=== PATIENT | female | born 1960 | race Caucasian/White ===

== ENCOUNTER 2016-12-21 11:09 | Inpatient (IN) ==
--- NOTE | 2016-12-20 20:36 | Discharge Summary ---
<Laura Burns - Last Filed: 12/20/16 20:34> Date of Encounter: 12/20/16 - Discharge Diagnosis (1) Loosening of knee joint prosthesis Priority: Primary Status: Acute Qualifiers: Encounter type: initial encounter Qualified Code(s): T84.038A - Mechanical loosening of other internal prosthetic joint, initial encounter; Z96.659 - Presence of unspecified artificial knee joint (2) HTN (hypertension) Priority: Secondary Status: Chronic - Discharge Medications Home Medications: Aspirin Enteric Coated [Aspirin EC] 325 mg PO DAILY #21 tablet.dr 12/20/16 [Rx] OxyCODONE Immed Rel [Roxicodone 5 MG] 5 - 10 mg PO Q6HR PRN #40 tablet 12/20/16 [Rx] Esomeprazole Magnesium [Nexium] 40 mg PO DAILY 12/21/16 [History] Fexofenadine HCl [Allergy Relief] 180 mg PO DAILY 12/21/16 [History] Lisinopril/Hydrochlorothiazide [Zestoretic 10-12.5 mg Tablet] 1 each PO DAILY [History] Meloxicam [Mobic] 15 mg PO DAILY 12/21/16 [History] Allergies/Adverse Reactions: Allergies ampicillin Adverse Reaction (Verified 12/21/16 12:25) Esvin Primary care physician: Giuseppe Canchola - Patient Status Disposition: Home, Self-Care Condition: Good - Discharge Instructions Follow Up With: Giuseppe Canchola DO [Primary Care Provider] - - Hospital Course Hospital course: Ms. Harvey is a 56 year old female - Time Spent with Patient Total time spent providing and/or coordinating discharge services: <Chace Sauer - Last Filed: 12/22/16 06:40> Date of Encounter: 12/22/16 Time of Encounter: 06:39 - Discharge Diagnosis (1) Morbid obesity with BMI of 40.0-44.9, adult Priority: Secondary Status: Chronic (2) Loosening of knee joint prosthesis Priority: Primary Status: Acute Qualifiers: Encounter type: subsequent encounter Qualified Code(s): T84.038D - Mechanical loosening of other internal prosthetic joint, subsequent encounter; Z96.659 - Presence of unspecified artificial knee joint (3) HTN (hypertension) Priority: Secondary Status: Chronic Qualifiers: Hypertension type: unspecified secondary hypertension Qualified Code(s): I15.9 - Secondary hypertension, unspecified; I15 - Secondary hypertension Primary care physician: Giuseppe Canchola - Patient Status Functional capacity at discharge: uses cane/walker Overall status at discharge: patient is progressing back to baseline - Hospital Course Hospital course: Ms. Harvey is a 56 year old female The patient had an uneventful postoperative course. They received antibiotics and physical therapy and were discharged in stable condition. There will follow -up in the office in 2 weeks. Aspirin DVT prophylaxis - Time Spent with Patient Total time spent providing and/or coordinating discharge services:
--- NOTE | 2016-12-21 11:28 | History & Physical Report ---
Date of Encounter: 12/21/16 Time of Encounter: 11:28 24 Hour HP Update - Instructions Instructions: If the History and Physical is less than 30 days old and was completed prior to A.M. admission and or procedure and has NOT been updated on calendar day of procedure please complete this update prior to performing procedure. - Update Patient reports changes in Medical Condition: No Changes in examination, assessment, or condition: No Changes in Medication: No Preop tests/diagnostics Reviewed: Yes Surgery Remains Indicated: Yes Consent for Planned Operative Procedure(s) Verified: Yes - Pre-Operative Checklist Preoperative Checklist Indicated: No Prophylactic Antibiotic Ordered: Yes Is VTE Prophylaxis Indicated?: Yes
[2016-12-21] MEDS ORDERED: *HR* FentaNYL (PF) 100 MCG/2 ML VIAL ONE (11:35)
[2016-12-21] MEDS ORDERED: *HR* Propofol 200 MG/20 ML VIAL IVP ONE (11:35)
[2016-12-21] MEDS ORDERED: *HR* Midazolam HCl 2 MG/2 ML VIAL ONE (11:35)
[2016-12-21] MEDS ORDERED: Dexamethasone 4 MG/ML VIAL ONE (11:36)
[2016-12-21] MEDS ORDERED: Lidocaine -MPF 2% 2 ML VIAL ONE (11:36)
[2016-12-21] MEDS ORDERED: Ondansetron 4 MG/2 ML VIAL ONE (11:36)
[2016-12-21] MEDS ORDERED: Gabapentin 300 MG CAPSULE PO ONE (11:51)
[2016-12-21] MEDS ORDERED: Famotidine 20 MG/2 ML VIAL IVP ONE (11:51)
[2016-12-21] MEDS ORDERED: Vancomycin 1,500 MG in D5% in Water 250 ML IVPB ONE (11:55)
--- NOTE | 2016-12-21 11:58 | Anesthesia Evaluation PreOp ---
Date of Encounter: 12/21/16 Time of Encounter: 12:00 - Past History Planned Operation: Left TKA Revision Cardiac History: HTN Pulmonary History: Denies Any Significant HX CHAINSTITCH HEMMER History: Denies Any Significant HX Other Medical History: GERD, Other (Morbid Obesity) Anesthesia History: No Prior Anesthetic Complications : No Alcohol Use: none Drug use: none Medications and Allergies Aspirin Enteric Coated [Aspirin EC] 325 mg PO DAILY #21 tablet. 12/20/16 [Rx] OxyCODONE Immed Rel [Roxicodone 5 MG] 5 - 10 mg PO Q6HR PRN #40 tablet 12/20/16 [Rx] Allergies ampicillin Adverse Reaction (Verified 12/21/16 11:55) Hives - Meds/Allergy Pre-op Review Medications Reviewed: Yes Allergies Reviewed: Yes Beta Blockers on Current Med List: No Anesthesia Results - Labs Laboratory Tests 12/18/16 12/18/16 08:45 08:45 Hgb 12.6 Hct 38.4 Plt Count 294 Sodium 139 Potassium 4.2 BUN 18 Creatinine 0.94 - Imaging EKG: report reviewed (SR) Anesthesia Exam O2 Sat Height 1.55 m Height 1.55 m Weight 106.141 kg Weight 106.141 kg O2 Sat by Pulse Oximetry 96 Vital Signs Temp Pulse Resp BP Pulse Ox 98.1 F 74 18 141/74 96 12/21/16 11:36 12/21/16 11:36 12/21/16 11:36 12/21/16 11:36 12/21/16 11:36 Height: 5'1 Weight: 234 lbs NPO (# of Hours): MN Pain Scale: 0 - HEENT Pupil (Motor): Pupils equal, EOMI Mallampati: III Teeth: Normal Oral Opening: Less than or equal to 3 - CHAINSTITCH HEMMER LOC: Oriented CHAINSTITCH HEMMER Motor: Normal RUE, Normal LUE, Normal RLE, Normal LLE, Normal Face CHAINSTITCH HEMMER Sensory: Normal: RUE, LUE, RLE, LLE, Face - Cardiac Rhythm: Regular Murmur: None JVD: No Carotid Bruit: No - Pulmonary Breath Sounds: bilateral Clear Respiratory Effort: Symmetrical Anesthesia Assess/Plan ASA Score: 3 (MO HTN GERD) Modified Pavan Scale for Level of Consciousness: Cooperative, oriented, and tranquil Anesthetic Plan: General, Regional Recovery Plan: PACU (Discussed GA and RA, agrees to proceed)
[2016-12-21] MEDS ORDERED: Ringers Solution, Lactated 1,000 ML IVC SCH ×2 (12:00→16:32)
[2016-12-21] MEDS ORDERED: *HR* HYDROmorphone (PF) 1 MG/ML SYRINGE IVP PRN ×2 (12:30→16:32)
[2016-12-21] MEDS ORDERED: Ondansetron 4 MG/2 ML VIAL IVP PRN ×2 (12:30→16:32)
[2016-12-21] MEDS ORDERED: Tetracaine/PF 20 MG/2 ML AMPUL ONE (12:48)
[2016-12-21] MEDS ORDERED: Bupivacaine/Clonidine Syringe 1 EACH SYRINGE ONE ×2 (12:49→17:07)
--- NOTE | 2016-12-21 13:11 | Anesthesia Procedures ---
Date of Encounter: 12/21/16 Time of Encounter: 11:56 Procedures: Anesthesia - Nerve Block Procedure Date: 12/21/16 Time: 13:00 Pre-op Diagnosis: Left Knee OA Surgical Procedure: Left TKA Checklist: Correct Patient Identifier Correct side: Left Blood Thinner: No Monitor Applied: EKG, BP, Pulse Oximetry Supplemental Oxygen via Nasal Cannula (L/min): 2 Sedation: Versed (mg): 2 Sedation: Fentanyl (mcg): 100 Indication: Post Op Analgesia Pre-op Neuro Deficits: No Block Type: Femoral, Other (IPACK) Catheter placed: No Depth at skin (cm): 3 Sterile Technique: Yes Ultrasound used: Yes Anatomy identified: Yes Visual spread of Local: Yes Neuro Stimulation: Yes Nerve Stimulator Range: >0.4 - 0.6 mA Blood on Needle Aspiration: No Smooth Injection of Local: Yes Pain with Injection of Local: No Prep: Chlorhexadine Needle: 22 x 50 mm Stimuplex Local: Tetracaine (20mg), Other (Marcaine 0.5%) Volume (cc): 30 Number of Attempts: 1 Complications: None/effective block Vitals: Vital Signs/O2 Sat/Glucose, Most Current Temp Pulse Resp BP Pulse Ox 12/21/16 13:08 81 16 155/86 96 12/21/16 12:43 98.1 F 74 18 141/74 96 12/21/16 12:39 67 16 144/65 99 12/21/16 12:05 98.1 F 74 18 141/74 96 12/21/16 11:36 98.1 F 74 18 141/74 96
[2016-12-21] MEDS ORDERED: *HR* HYDROmorphone 2 MG/ML SYRINGE ONE (13:56)
[2016-12-21] MEDS ORDERED: Ketorolac 30 MG/ML VIAL ONE (13:58)
--- NOTE | 2016-12-21 14:31 | Orthopedic Operative Note ---
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 After general anesthesia was administered the operative knee was examined. Findings were noted in the exam under anesthesia. The operative extremity was prepped and draped in sterile surgical fashion. The patient received IV antibiotics prior to skin incision. A standard midline incision was made centered over the patella. The incision was made through the skin and subcutaneous tissue through the old incision. A medial parapatellar tendon approach was performed. Care was taken to preserve tissue along the medial aspect of the patella. And to protect the patella tendon. The deep MCL was released off the medial tibia. The infra patella fat pad was excised. Cultures were obtained as well as Gram stain. 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 An extensive synovectomy was performed. The knee was brought into flexion the tibial poly-was removed. The femur was well fixed. Attention was then turned to the tibial component. The tibial component was loose and removed with an osteotome without any bone loss. Tibia was recut just below the level of the cement mantle. The tibia was prepared first sized to a 2 reamed to a 10x 50 stem. The finishing punch was seated. Trial had good fit and fixation. Trial reduction revealed full extension and full flexion no varus valgus instability with an 16 PS Ashlyn. Trial components removed knee sat for 2 minutes with a Betadine saline solution. It was irrigated out with pulse irrigation. Components were assembled on the back table. The tibia cemented. The 16 PS Ashlyn was seated and secure. The had full flexion and full extension and excellent patella tracking no varus valgus instability. After the cement hardened the knee was irrigated out again. The knee was taken through a range of motion had excellent patella tracking. The extensor mechanism was closed with a running #2 Fiberwire suture and a running #2 PDS suture. The deep tissue was irrigated and closed deep with #1 PDS suture superficially with 0 PDS suture. The skin was closed with Dermabond and skin cali. The patient was placed in a sterile dressing and postoperative brace. They were extubated and transferred to recovery room in stable condition. Anesthesia: GETA Surgeon: Chace Sauer Lump Maker: Laura Burns Condition: stable Disposition: PACU
[2016-12-21 15:45] LABS: Hematocrit 35.9 % (35.3-44.9); Hemoglobin 11.6 g/dL (11.5-15.4)
--- NOTE | 2016-12-21 16:07 | Anesthesia Evaluation Post Op ---
Date of Encounter: 12/21/16 Time of Encounter: 16:04 - Vital Signs Vital Signs: Vital Signs/O2 Sat/Glucose, Most Recent Temp Pulse Resp BP Pulse Ox 97.0 F L 101 12 103/90 92 12/21/16 15:33 12/21/16 15:53 12/21/16 15:53 12/21/16 15:53 12/21/16 15:53 - Lungs Lungs: Clear Ascult./Percussion - Airway Airway: Non-obstructed - Cardiovascular Regular Rate - Mental Status Mental Status: Alert & Oriented, Answers Appropriately - Pain Pain Scale: 0 Pain Scale used: Numeric (1 - 10) - Nausea Vomiting Nausea Vomiting: Not Present - Hydration Hydration: Ice chips Notes: 12/21/16 16:05 Drowsy but awakens to voice command, AAOx3, VSS with no complaints - Discharge PostOp Status: Transfer Patient to floor
[2016-12-21] MEDS ORDERED: Sennosides 8.6 MG TABLET PO PRN (16:32)
[2016-12-21] MEDS ORDERED: Temazepam 15 MG CAPSULE PO PRN (16:32)
[2016-12-21] MEDS ORDERED: MOM Conc 10 ML UD.LIQ PO PRN (16:32)
[2016-12-21] MEDS ORDERED: *HR* OxyCODONE Immed Rel 5 MG TABLET PO PRN ×2 (16:32)
[2016-12-21] MEDS ORDERED: Naloxone 0.4 MG/ML INJ IVP PRN (16:32)
[2016-12-21] MEDS: ceFAZolin 2,000 MG in D5% in Water 100 ML IVPB SCH ×2 (17:17→23:58)
[2016-12-21] MEDS: *HR* Enoxaparin 30 MG/0.3 ML SYRINGE SQ SCH (17:18)
[2016-12-21] MEDS ORDERED: *HR* Enoxaparin 30 MG/0.3 ML SYRINGE SQ SCH (18:00)
[2016-12-22] MEDS: *HR* Enoxaparin 30 MG/0.3 ML SYRINGE SQ SCH (05:33)
[2016-12-22 05:47] LABS: Hematocrit 32.6 % (35.3-44.9); Hemoglobin 10.7 g/dL (11.5-15.4)
[2016-12-22 06:08] LABS: BUN/Creatinine Ratio 19 (6-26); Blood Urea Nitrogen 17 mg/dL (7-20); Calcium 8.7 mg/dL (8.6-10.8); Carbon Dioxide 24 mEq/L (19-29); Chloride 102 mEq/L (98-109); Glucose 139 mg/dL (70-99); Osmolality,Calculated 284 (280-300); Potassium 4.2 mEq/L (3.5-4.5); Sodium 135 mEq/L (136-145); eGFR For African Americans > 60 (> 60); eGFR For Non-African Americans > 60 (> 60)
--- NOTE | 2016-12-22 06:39 | Orthopedics Progress Note ---
Date of Encounter: 12/22/16 Time of Encounter: 06:39 - Assessment and Plan (1) Morbid obesity with BMI of 40.0-44.9, adult Current Visit: Yes Status: Chronic (2) Loosening of knee joint prosthesis Current Visit: Yes Status: Acute Qualifiers: Encounter type: subsequent encounter Qualified Code(s): T84.038D - Mechanical loosening of other internal prosthetic joint, subsequent encounter; Z96.659 - Presence of unspecified artificial knee joint (3) HTN (hypertension) Current Visit: Yes Status: Chronic Qualifiers: Hypertension type: unspecified secondary hypertension Qualified Code(s): I15.9 - Secondary hypertension, unspecified; I15 - Secondary hypertension Subjective Interval history: Patient was seen this morning doing well without complaints. Afebrile vital signs stable. Operative extremity: Neurovascularly intact Dressing clean dry and intact Calves nontender Assessment and plan: Continue with postoperative care Hematocrit 32.6 discharged today Objective Vital signs: Vital Signs Temp Pulse Resp BP Pulse Ox 12/22/16 03:50 97.5 F L 83 16 110/71 95 12/22/16 01:11 97.9 F 74 17 117/76 96 12/21/16 21:18 97.4 F L 84 18 119/78 92 12/21/16 18:24 89 104/72 97 12/21/16 17:30 90 16 115/74 89 12/21/16 17:06 87 16 109/78 94 12/21/16 16:43 93 12/21/16 16:36 97.7 F 95 16 111/76 93 12/21/16 16:13 97.4 F L 98 12 111/91 94 12/21/16 16:03 97.4 F L 104 12 119/92 92 12/21/16 15:53 101 12 103/90 92 12/21/16 15:43 101 12 129/103 95 12/21/16 15:33 97.0 F L 100 12 111/98 96 12/21/16 15:23 100 12 106/83 94 12/21/16 15:13 103 12 100/89 94 12/21/16 15:03 97.0 F L 106 12 118/102 93 12/21/16 13:20 81 18 135/66 96 12/21/16 13:08 81 16 155/86 96 12/21/16 12:43 98.1 F 74 18 141/74 96 12/21/16 12:39 67 16 144/65 99 12/21/16 12:05 98.1 F 74 18 141/74 96 12/21/16 11:36 98.1 F 74 18 141/74 96 Intake and Output 12/21/16 12/21/16 12/22/16 15:59 23:59 07:59 Intake Total 100 / 100 Output Total 300 / 300 500 / 500 Balance -300 / -300 100 / 100 -500 / -500 Intake: IV Fluids 100 / 100 Ancef 2,000 MG In 100 / 100 Dextrose 5% 100 ML @ 200 mls/hr IVPB Q8HR CARL[facility] Rx#: [id number] Output: Urine 500 / 500 Estimated Blood Loss 300 / 300 Other: # Voids 1 Weight 106.141 kg 112.5 kg Patient Weight 12/22/16 23:59 Weight 112.5 kg - Labs CBC & BMP: 12/22/16 04:39 12/22/16 04:39 Labs: Abnormal lab results Hgb 10.7 g/dL (11.5-15.4) L 12/22/16 04:39 Hct 32.6 % (35.3-44.9) L 12/22/16 04:39 Sodium 135 mEq/L (136-145) L 12/22/16 04:39 Glucose 139 mg/dL (70-99) H 12/22/16 04:39 POC Glucose 197 (58-89) H 12/21/16 17:51 - VTE Documentation of Mechanical Device: Venous foot pump, device Consult Discharge Plan - Plan Referrals: Giuseppe Canchola DO [Primary Care Provider] -
[2016-12-22] MEDS ORDERED: Loratadine 10 MG TABLET PO SCH (09:00)
[2016-12-22 11:13] VITALS: BP 108/56
== END 2016-12-22 14:04 | disposition home or self-care (01) | DRG 467 ==
LOC: SAMDAY 11:09 → 3NENU 16:13
PROVIDERS: ADMIT Orthopaedic Surgery; ATTEND Orthopaedic Surgery